=== PATIENT | male | born 1970 | race Caucasian/White ===

== ENCOUNTER 2017-07-12 08:30 | Outpatient (RCR) | payer OTHER, SELFPAY ==
--- NOTE | 2017-03-15 12:12 | HP.PTEVAL_ITS ---
Patient's Visit Information JACQUELINE CENTENO I is a 46 year old M referred to Physical Therapy by Evan Lucio MD with a diagnosis of CHRONIC LOW BACK PAIN. Date of Evaluation: 03/15/17 Physical Therapist: Glenn Puga, PT, - Visit Plan Frequency: 2x /Week Duration: 4 Weeks Plan: DLS,LE FLEXABLITY,POSTURAL EX,MODALITIES - Subjective Subjective: This 46 y/o male presents to physical therapy with chronic lumbar pain. Patient retired in [employer] 2012. Patient had x-rays showed compression fx , spondylosis,DDD. Location of lumbar pain symmtrical L-S.Symptoms worse bending, lifting,sitting,running. Symptoms better with walking,resting. Denies parathesia /tingling.Coughing/sneezing (-). Bowel/bladder good.Seen chiropractor. Sleeping okay at night. No prior PT. Chronic pain from being in service. 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 SOCIAL: single - Pain Bilateral Back Pain Intensity (Out of 10): 5 Pain Intensity Range: 10 - Objective POSTURE: WFL. GAIT: normal aiden. NEURO: denies parathesia/tingling, reflexes L3-4,L4-5,L5-S1 2/3. FLEXABILITY: hams min/mod tight,piriformis mod tight. MMT: 5/5 quads/hams,hip flexion 4/5,ankle 5/5. SYMMTRIES : align. LUMBAR ROM: flexion mod loss pain,side glides min/mod loss,extesnion min/mod loss - Special Tests L/S Slump test left side: Negative L/S Slump test right side: Negative L/S Left Straight Leg Raise: Negative L/S Right Straight Leg Raise: Negative Lumbar Standing: Flexion - Mechanical Response: No effect Lumbar Standing: Flexion - Symptoms During Testing: Increases Lumbar Standing: Flexion - Symptoms After Testing: No worse Lumbar Standing: Extension - Mechanical Response: No effect Lumbar Standing: Extension - Symptoms During Testing: Increases Lumbar Standing: Extension - Symptoms After Testing: No worse Lumbar Lying: Flexion - Mechanical Response: No effect Lumbar Lying: Flexion - Symptoms During Testing: Increases Lumbar Lying: Flexion - Symptoms After Testing: Worse Lumbar Lying: Extension - Mechanical Response: No effect Lumbar Lying: Extension - Symptoms During Testing: Increases Lumbar Lying: Extension - Symptoms After Testing: No worse - Goals Goal 1:: Independant with HEP Goal Time Frame: 4-6 Weeks Goal 2:: Independant withh posture/body mechanics Goal Time Frame: 4-6 Weeks Goal 3:: Decrease lumbar pain by 50% or greater to improve function and ADL'S Goal Time Frame: 4-6 Weeks Goal 4:: Patient improve lumbar ROM to min loss for function of recovery Goal Time Frame: 4-6 Weeks Goal 5:: Patient be able to perform ADL'S/job and housework tasks with min limiations Goal Time Frame: 4-6 Weeks Goal 6:: Patient be d/c to prophalaxis Goal Time Frame: 4-6 Weeks - Rehabilitation Potential Physical Therapy Diagnosis: This 46 y/o male presents to physical therapy with lumbar pain with compression deformity. spondylosis with pain with movement greater with flexion along with decrease strength of multifidas and transverse abdominals thus will benifit from skilled PT Rehabilitation Potential: Good - Anticipated Interventions Patient/Client Instruction: Educate patient on: Condition, Plan of Care For the Purpose of:: To decrease pain, To improve muscle performance and motor function, To improve ability to perform ADL's, To increase tolerance to activity /condition/position, To improve ability of physical actions for home/community/ work/leisure, To decrease soft tissue restriction, To increase flexibility/ROM, To improve ability to perform tasks related to life management Therapeutic Exercise to Include: Strength training, Postural training, Flexibilty training, Dynamic Lumbar Stabilization For the Purpose of:: To decrease pain, To increase ROM, To improve muscle performance and motor function, To increase tolerance to activity/condition/ position, To improve ability of physical actions for home/community/work/leisure , To improve health of tissue, To decrease soft tissue restriction, To increase flexibility/ROM, To prevent re-injury, To improve ability to perform tasks related to life management IF ES: Yes Cryotherapy (ice pack, ice massage): Yes Thermo therapy (hot pack): Yes Ultrasound (thermal/non thermal): Yes For the Purpose of:: To decrease pain, To increase ROM, To improve nutrient delivery to tissue, To increase oxygenation perfusion, To improve health of tissue, To decrease soft tissue restriction Thank you for the opportunity to evaluate your patient. For Medicare and Medicare HMO plans, please review the plan of care and approve it. It will need to be FAXED BACK to us at [phone] for Medicare purposes. Please let me know if there are questions or concerns regarding this plan of care. Physician Signature: Date:
--- NOTE | 2017-08-26 13:02 | HP.PTDCNRP_ITS ---
HP - Discharge Summary (1) - Patient Information JACQUELINE CENTENO I was seen in my office for initial evaluation on 03/15/17. The following Plan of Care was established for this patient: Initial Frequency: 2x /Week Initial Duration: 4 Weeks - Anticipated Interventions Patient/Client Instruction: Educate patient on: Condition, Plan of Care For the Purpose of:: To decrease pain, To improve muscle performance and motor function, To improve ability to perform ADL's, To increase tolerance to activity /condition/position, To improve ability of physical actions for home/community/ work/leisure, To decrease soft tissue restriction, To increase flexibility/ROM, To improve ability to perform tasks related to life management Therapeutic Exercise to Include: Strength training, Postural training, Flexibilty training, Dynamic Lumbar Stabilization For the Purpose of:: To decrease pain, To increase ROM, To improve muscle performance and motor function, To increase tolerance to activity/condition/ position, To improve ability of physical actions for home/community/work/leisure , To improve health of tissue, To decrease soft tissue restriction, To increase flexibility/ROM, To prevent re-injury, To improve ability to perform tasks related to life management IF ES: Yes Cryotherapy (ice pack, ice massage): Yes Thermo therapy (hot pack): Yes Ultrasound (thermal/non thermal): Yes For the Purpose of:: To decrease pain, To increase ROM, To improve nutrient delivery to tissue, To increase oxygenation perfusion, To improve health of tissue, To decrease soft tissue restriction This patient was last seen in our office 07/12/17. Pertinent comments regarding their Physical therapy will appear below: This 46 y/o male seen for PT for lumbar pain for 8 visit for DLS ,posture ex's , strengthening in nuetral for TA activitation .Patient progressing with increase strength and decreasing pain,thus is d/c . At this point I will be discontinuing this patient from physical therapy. I would be happy to see this patient again in the future if found appropriate by the physician. Thank you! Glenn Puga, PT,
== END 2017-07-12 19:00 | disposition home or self-care (01) ==
LOC: PT 08:30
PROVIDERS: Family Provider Internal Medicine; PCP Internal Medicine; Visit Provider Internal Medicine
DX: M54.5 Low back pain (principal); G89.29 Other chronic pain
CPT/HCPCS: 97014; 97110; 97162; G0283

== ENCOUNTER → 2017-08-10 13:36 | Outpatient (CLI) | payer OTHER, SELFPAY ==
[2017-08-10 15:47] LABS: Hematocrit 48.1 % (40-54); Hemoglobin 16.3 g/dl (13.0-16.5); Mean Corp Hgb Conc 33.9 g/gl (32-36); Mean Corpuscular Hgb 31.6 pg (27.0-32.0); Mean Corpuscular Volume 93.2 fL (80-94); Mean Platelet Vol. 10.5 fl (6.2-12.0); Platelet Count 186 K/mm3 (150-450); RBC Distribution Width CV 13.2 % (11.6-14.6); RBC Distribution Width SD 45.2 fl (35.1-43.9); Red Blood Count 5.16 M/mm3 (4.6-6.2); White Blood Count 8.1 K/mm3 (4.4-11.0)
[2017-08-10 15:51] LABS: Scan Indicated on CBC? Y/N NO
[2017-08-10 16:07] LABS: ALB/GLOB Ratio 0.9 RATIO (0.9-2.4); AST(SGOT) 31 U/L (15-37); Alanine Aminotransfer ALT/SGPT 59 U/L (16-61); Albumin, Serum 3.9 g/dL (3.2-5.0); Alkaline Phosphatase 56 U/L (45-117); Anion Gap 8 (5-15); BUN 13 mg/dL (7-18); BUN/Creat Ratio 12.1 RATIO (10-20); Calcium,Total 8.4 mg/dL (8.5-10.1); Chloride 105 mmol/L (98-107); Cholesterol 139 mg/dL (200); Creatinine, Serum 1.07 mg/dL (0.70-1.30); EST Glomerular Filtration Rate 78 mL/min (>60); Est Glom Filt Rate - Afr Amer 95 mL/min (>60); Globulin 4.2 g/dL (2.2-4.2); Glucose 87 mg/dL (74-106); High Density Lipoprotein 35 mg/dL; PSA,Total- Diagnostic 0.58 ng/mL (0.0-4.0); Potassium 4.2 mmol/L (3.5-5.1); Protein, Total 8.1 g/dL (6.4-8.2); Sodium Level 140 mmol/L (136-145); T4 Free Direct 1.11 ng/dL (0.76-1.46); Thyroid Stim Hormone (TSH) 0.62 uIU/mL (0.358-3.74); Triglycerides 240 mg/dL; Very Low Density Lipoprotein 48 mg/dL (5-40)
[2017-08-10 16:12] LABS: Hemoglobin A1c 5.7 % (4.2-6.3)
[2017-08-14 08:51] LABS: Testosterone Free 35.2 pg/mL (6.8-21.5)
[2017-08-14 12:06] LABS: Testosterone, Free 49.89 ng/dL (5.00-21.00)
[2017-08-15 11:21] LABS: Testosterone, % Free 4.12 % (1.50-4.20); Testosterone, Total 1211 ng/dL (264-916)
== END ==
PROVIDERS: Family Provider Internal Medicine; PCP Internal Medicine; Visit Provider Nurse Practitioner Family
DX: E29.1 Testicular hypofunction (principal); E78.5 Hyperlipidemia, unspecified; R79.89 Other specified abnormal findings of blood chemistry; E03.9 Hypothyroidism, unspecified; E11.9 Type 2 diabetes mellitus without complications; Z79.899 Other long term (current) drug therapy
CPT/HCPCS: 36415; 80053; 80061; 83036; 84153; 84402; 84403; 84439; 84443; 85027